=== PATIENT | male | born 1980 | race Asian ===

== ENCOUNTER 2023-03-13 20:02 | Emergency (ER) | payer BC, SELFPAY ==
[2023-03-13 20:18] VITALS: BP 108/73; PULSE 101; RESP 16; TEMP 36.7; O2SAT 99
== END 2023-03-14 00:39 | disposition left against medical advice (07) ==
LOC: ER 20:27
DX: Z53.21 Procedure and treatment not carried out due to patient leaving prior to being seen by health care provider (principal)